=== PATIENT | female | born 1990 | race African-American/Black ===

== ENCOUNTER 2019-05-13 06:14 | Emergency (ER) | payer BC ==
[~2019-05-13] VITALS: Ht 154.9 cm; Wt 59.6 kg
[2019-05-13 06:25] VITALS: Ht 154.9 cm; Wt 59.6 kg
[2019-05-13 08:29] VITALS: BP 124/73
== END 2019-05-13 08:29 | disposition home or self-care (01) ==
LOC: ED 06:14
DX: R11.10 Vomiting, unspecified (principal); R19.7 Diarrhea, unspecified; R10.9 Unspecified abdominal pain
CPT/HCPCS: 87804; J1885; Q0162